=== PATIENT | male | born 1940 | race Caucasian/White ===

== ENCOUNTER 2023-03-28 08:27 | Emergency (ER) | payer MEDICARE, SELFPAY ==
[2023-03-28] VITALS (7 sets, daily range): BP systolic 143–176; BP diastolic 69–94
[2023-03-28 09:12] LABS: % Eosinophils 2.3 % (0-6); % Immature Granulocytes 0.2 % (0-0.5); % Lymphocytes 42.7 % (20.5-51.1); % Monocytes 8.9 % (1.7-9.3); % Neutrophils 44.9 % (42.2-75.2); Absolute Basophils 0.1 10^3/uL (0-0.2); Absolute Eosinophils 0.1 10^3/uL (0-0.7); Absolute Lymphocytes 2.1 10^3/uL (1.2-3.4); Absolute Monocytes 0.4 10^3/uL (0.1-0.6); Absolute Neutrophils 2.2 10^3/uL (1.4-6.5); Hematocrit 39.7 % (39.0-52.0); Mean Corp Hgb Conc. 32.7 g/dL (33.0-37.0); Mean Corpuscular Hgb 29.2 pg (27.0-31.0); Mean Corpuscular Volume 89.2 fL (80.0-94.0); Mean Platelet Volume 9.1 fL (7.4-10.4); Nucleated Red Blood Cells % 0 % (-); Platelet Count 244 10^3/uL (130-400); Red Blood Cell Count 4.45 10^6/uL (4.70-6.10); Red Cell Dist. Width 13.6 % (11.5-14.5); White Blood Cell Count 4.8 10^3/uL (4.8-10.8)
[2023-03-28] MEDS: ZOFRAN 4 MG IV (09:20)
[2023-03-28 09:28] LABS: ALT (SGPT) 20 U/L (0-50); AST (SGOT) 27 U/L (17-59); Albumin 3.9 g/dl (3.5-5.0); Alkaline Phosphatase 68 U/L (38-126); Blood Urea Nitrogen 17 mg/dl (9-20); Calcium 9.4 mg/dl (8.4-10.2); Carbon Dioxide 27 mmol/L (22-30); Chloride 102 mmol/L (98-107); Glucose 144 mg/dl (70-99); Sodium 138 mmol/L (135-145); Total Bilirubin 0.6 mg/dl (0.2-1.3); Total Protein 6.7 g/dl (6.3-8.2); eGFR > 60.00
[2023-03-28 09:40] LABS: Troponin I < 0.012 ng/ml
--- NOTE | 2023-03-28 09:40 | ED.GENMED ---
History of Present Illness
General
Chief Complaint: Dizziness
Time Seen by Provider: 03/28/23 08:54
Travel History
Have you had any contact with someone who has COVID-19?: No
Do you have any symptoms of coronavirus? Fever > 100 degrees, chills, cough, shortness of breath, sore throat, loss of taste or smell, muscle aches, or headache?: No
History of Present Illness
History of Present Illness:
83-year-old male presents to the emergency department for evaluation of severe dizziness associated with nausea and vomiting that developed upon awakening today. States that symptoms improve when he is at rest however he is unable to walk due to
dizziness. Does have a history of A-fib status post ablation many years ago, not currently on any anticoagulants. Denies any speech difficulty, extremity weakness or numbness, vision changes, or neck pain. Denies any recent fevers or chills, no
recent upper respiratory tract illnesses. Did have ear pain approximately 1 week ago that was very brief and is since resolved, denies hearing loss.
Review of Systems
Review of Systems
Allergies reviewed?: Yes
All Other Systems: ROS reviewed and negative except as documented in HPI and ROS
Phy Exam
Physical Exam
Physical Exam:
GEN: Well appearing, NAD, WDWN
HEENT: Oral mucosa moist, no scleral icterus, no nasal congestion
Cardiac: Regular rate
Lung: No respiratory distress, no tachypnea
MSK: No gross deformity or injuries
Skin: Good color, no pallor or jaundice, no rashes
Neuro: AO x3; CN II-XII grossly intact. BUE strength 5/5 in all vargas, sensation intact and symmetric. BLE strength 5/5 in all vargas, sensation intact and symmetric. Unable to elicit nystagmus however patient becomes vertiginous and vomits after
standing
Psych: Calm, cooperative
Course
Orders/Labs/Results
Orders:
Orders
03/28/23 08:49
Electrocardiogram (*1) Urgent
Reason for Study: Vertigo / Dizzy
EKG- Treatment ONCE
03/28/23 08:59
Complete Blood Count/With Diff Urgent
Comprehensive Metabolic Panel Urgent
Troponin I Urgent
03/28/23 09:16
Ondansetron Injectable [Zofran] 4 mg IV NOW STA
Pt Eval And Treat Urgent
Treatment: vestibular
Activity Level: As Tolerated
03/28/23 10:33
diazePAM [Valium Injection] 2 mg IV NOW STA
Abnormal Lab Results
03/28/23
08:59
RBC 4.45 L 10^6/uL
(4.70-6.10)
MCHC 32.7 L g/dL
(33.0-37.0)
Glucose 144 H mg/dl
(70-99)
03/28/23 08:59
03/28/23 08:59
Vital Signs
Initial and Last Documented VS:
Initial Vital Signs
Temp Pulse Resp BP Pulse Ox
97.7 F 66 18 163/84 97
03/28/23 08:30 03/28/23 08:30 03/28/23 08:30 03/28/23 08:30 03/28/23 08:30
Last Documented Vital Signs
Temp Pulse Resp BP Pulse Ox
97.7 F 80 16 146/69 98
03/28/23 08:30 03/28/23 12:10 03/28/23 12:10 03/28/23 12:30 03/28/23 12:31
MDM/Problems Addressed
MDM/Problems Addressed:
83-year-old male presents with acute onset of vertiginous symptoms beginning this morning. The vertigo is fatigable at rest however he becomes profoundly symptomatic when he is upright or walking. I do not see any nystagmus on my evaluation. He
has no other focal neurologic deficits concerning for posterior circulation CVA. Physical therapy was consulted and their evaluation is congruent with left-sided peripheral vertigo. The patient did become profoundly symptomatic during their
evaluation as well. Patient was treated then with diazepam with modest improvement in vertigo however did have significant somnolence with this diazepam administration. After prolonged observation period in the emergency department he was
reassessed and is quite steady on his feet. At that time he was marked for discharge the patient did have recurrent episode of vomiting, he was offered admission however he declines and would like to go home. Given lack of other focal neurologic
deficits I see no indication for imaging to evaluate for possible posterior circulation stroke. He had no preceding viral syndrome to suggest a vestibular neuritis. Discussed supportive care and return parameters, will refer to outpatient PT
Comment
Comment:
EKG independently interpreted by me shows normal sinus rhythm at a rate of [address] changes concerning for ischemia, there is a right bundle branch block, QTc of 488
*Critical Care Note
Total Time (30-74mins, 75-104mins- exclusive of procedures): Not Applicable
ED Attending Note
-
Portions of this chart may have been created with voice recognition software.� Occasional wrong word or��sound alike� substitutions may have occurred due to the inherent limitations of voice recognition software.
Discharge Plan
Departure
Patient Disposition: Home (Routine Discharge)
Date of Disposition: 03/28/23
Time of Disposition: 12:32
Patient with high blood pressure during this ER visit?: No
Discharge Problem:
Benign paroxysmal vertigo of left ear
Instructions: Vertigo (a Type of Dizziness) (DC)
Prescriptions:
New
meclizine 25 mg tablet
25 mg PO TID PRN (Reason: dizziness) Qty: 30 0RF
Referrals:
Yaneli Cam CRNP [Family Provider] -
Activity Restrictions/Additional Instructions:
Schedule your outpatient physical therapy appointment tomorrow
Interventions
Interventions:
*Risk Screen - Suicide Last Done: 03/28/23 08:30
*General Assessment Last Done: 03/28/23 08:30
*Neglect/Abuse Screening Last Done: 03/28/23 08:30
ED- Fall Risk Assessment Last Done: 03/28/23 12:00
*ED COVID-19 Vaccine History Last Done: 03/28/23 12:00
*Nursing Disposition Last Done: 03/28/23 12:47
ED- Neurological Assessment Last Done: 03/28/23 09:14
ED Swallowing Screen Last Done: 03/28/23 09:14
Discharge Date and Time
Discharge Date/Time: 03/28/23 12:48
[2023-03-28] MEDS: VALIUM INJECTION 2 MG IV (10:44)
== END 2023-03-28 12:48 | disposition home or self-care (01) ==
LOC: EMR 08:27
PROVIDERS: EMERGENCY PHYSICIAN Emergency Medicine; FAMILY PHYSICIAN Nurse Practitioner
DX: H81.12 Benign paroxysmal vertigo, left ear (principal); R40.0 Somnolence; R11.2 Nausea with vomiting, unspecified; I45.10 Unspecified right bundle-branch block; I48.91 Unspecified atrial fibrillation
CPT/HCPCS: 99284; 96374; 96375; 80053; 84484; 85025; 93005

== ENCOUNTER 2023-04-06 06:29 | Outpatient (RCR) | payer MEDICARE, SELFPAY | END 2023-04-06 23:59 | disposition home or self-care (01) | LOC: RPT 06:29 | PROVIDERS: ATTENDING PHYSICIAN Nurse Practitioner Family | DX: R42 Dizziness and giddiness (principal); Z73.6 Limitation of activities due to disability | CPT/HCPCS: 97112; 97162 ==